=== PATIENT | female | born 1945 | race Caucasian/White ===

== ENCOUNTER → 2019-03-22 12:18 | Outpatient (BNVA) | payer MEDICARE, OTHER, SELFPAY | PROVIDERS: Referring Provider Neuromusculoskeletal Medicine & OMM; Visit Provider Psychiatry & Neurology Neurology | DX: G25.0 Essential tremor (principal); G47.61 Periodic limb movement disorder; M54.5 Low back pain; E11.9 Type 2 diabetes mellitus without complications | CPT/HCPCS: 99205 ==

== ENCOUNTER 2024-07-13 17:46 | Outpatient (REF) | payer MEDICARE, SELFPAY ==
[2024-07-13 16:51] LABS: HGB 13.3 g/dL (11.2-15.7); MCH 28.5 pg (27.0-33.0); MCHC 30.9 % (32.0-36.0); MCV 92 fL (80-95); Platelet Count 294 10^3/uL (130-400); RBC 4.66 10^6/uL (3.93-5.22); RDW 13.7 % (11.7-14.6); RDW-SD 46.5 fL; WBC 10.28 10^3/uL (4.4-10.8)
[2024-07-13 17:19] LABS: ALT 47 U/L (14-59); AST 52 U/L (15-37); Albumin 3.1 g/dL (3.4-5.0); Alkaline Phosphatase 202 U/L (46-116); Anion Gap 9.9 mmol/L (3-11); BUN 40 mg/dL (7-18); Bilirubin, Total 0.56 mg/dL (0.2-1.0); CO2 26.1 mmol/L (21.0-32.0); CREATININE 2.1 mg/dL (0.55-1.02); Chloride 103 mmol/L (98-107); Estimated GFR 23.67 (mL/min/1.73m2); Glucose 122 mg/dL (74-106); Potassium 4.3 mmol/L (3.5-5.1); Sodium 139 mmol/L (136-145); Total Protein 8.6 g/dL (6.4-8.2)
== END 2024-07-13 17:47 | disposition home or self-care (01) ==
LOC: NCHCN 17:46
PROVIDERS: Visit Provider Physician Assistant
DX: N28.9 Disorder of kidney and ureter, unspecified (principal)
CPT/HCPCS: 80053; 85027

== ENCOUNTER 2024-10-20 18:01 | Outpatient (REF) | payer MEDICARE, SELFPAY ==
[2024-10-20 19:19] LABS: HCT 39.6 % (36.0-46.0); HGB 12.7 g/dL (11.2-15.7); MCHC 32.1 % (32.0-36.0); MCV 93 fL (80-95); MPV 10.2 fL (8.0-11.0); Platelet Count 268 10^3/uL (130-400); RBC 4.24 10^6/uL (3.93-5.22); RDW 15.1 % (11.7-14.6); RDW-SD 51.7 fL; WBC 7.28 10^3/uL (4.4-10.8)
[2024-10-20 19:29] LABS: ALT 68 U/L (14-59); AST 55 U/L (15-37); Albumin 3.5 g/dL (3.4-5.0); Alkaline Phosphatase 138 U/L (46-116); Anion Gap 7.8 mmol/L (3-11); BUN 21 mg/dL (7-18); Bilirubin, Total 0.33 mg/dL (0.2-1.0); CO2 28.2 mmol/L (21.0-32.0); CREATININE 1.1 mg/dL (0.55-1.02); Calcium 8.9 mg/dL (8.5-10.1); Chloride 107 mmol/L (98-107); Estimated GFR 51.43 (mL/min/1.73m2); Glucose 142 mg/dL (74-106); Potassium 4.2 mmol/L (3.5-5.1); Sodium 143 mmol/L (136-145); Total Protein 7.3 g/dL (6.4-8.2)
[2024-10-20 19:30] LABS: C-Reactive Protein < 0.50 mg/dL (<or=0.5)
[2024-10-20 19:39] LABS: Hemoglobin A1C 7.9 % (<5.7)
[2024-10-21 19:47] LABS: AFP Tumor Marker 4.5 ng/mL (<8.1)
[2024-10-24 10:47] LABS: Hepatitis B Surface Ag Negative (Negative)
[2024-10-24 11:17] LABS: Hepatitis C Ab w Rflx HCV PCR Negative (Negative)
[2024-10-24 11:36] LABS: Hep B Core Antibody Negative (Negative)
== END 2024-10-20 18:02 | disposition home or self-care (01) ==
LOC: NCHCN 18:01
PROVIDERS: Visit Provider Physician Assistant
DX: E11.8 Type 2 diabetes mellitus with unspecified complications (principal); A49.8 Other bacterial infections of unspecified site; K74.60 Unspecified cirrhosis of liver
CPT/HCPCS: 80053; 85027; 86704; 86803; 87340; 82105; 83036; 86140

== ENCOUNTER 2025-02-08 01:43 | Outpatient (CLI) | payer MEDICARE, SELFPAY ==
--- NOTE | 2025-02-08 | DI.RAD_ITS ---
Exam(s) XR HIP RT COMPLETE AP PELVIS EXAM: XR HIP RT COMPLETE AP PELVIS CLINICAL HISTORY: RT HIP PAIN,M25.551,PROGRESSIVE. TECHNIQUE: 2D digital imaging was performed. Two views COMPARISON: No exams were available for comparison FINDINGS: BONES: No acute fracture is present. No bony destructive lesion is seen. There is hardware in the l ower lumbar spine. L5 JOINTS: No dislocation present. There is severe narrowing of the right hip joint space. There is s purring at the superior acetabulum and minimal spurring at the femoral head. There is a left hip pro sthesis which is unremarkable. There are mild degenerative changes of the SI joints and pubic symphy sis. SOFT TISSUE: Normal. IMPRESSION: Severe degenerative changes of the right hip DATA REPOSITORY: RADIATION DOSE DELIVERED:
== END 2025-02-08 02:03 ==
PROVIDERS: PCP Physician Assistant; Visit Provider Physician Assistant
DX: M16.11 Unilateral primary osteoarthritis, right hip (principal)
CPT/HCPCS: 73502

== ENCOUNTER 2025-03-16 14:30 | Outpatient (CLI) | payer MEDICARE, SELFPAY ==
--- NOTE | 2025-03-16 13:30 | DI.RAD_ITS ---
Exam(s) XR PELVIS AP EXAM: XR PELVIS AP CLINICAL HISTORY: HIP PAIN. TECHNIQUE: 2D digital imaging was performed. Single AP view. COMPARISON: CR XR HIP RT COMPLETE AP PELVIS from 02/08/2025 FINDINGS: BONES: No acute fracture is present. No bony destructive lesion is seen. JOINTS: No dislocation present. Stable appearance of left hip prosthesis. Severe narrowing of the r ight hip joint space and prominent spurring at the acetabulum. SI joints and pubic symphysis are unr emarkable. SOFT TISSUE: Normal. IMPRESSION: Severe degenerative changes of the right hip. DATA REPOSITORY: RADIATION DOSE DELIVERED:
== END 2025-03-16 14:31 | disposition home or self-care (01) ==
LOC: DIORS 14:31
PROVIDERS: PCP Physician Assistant; Referring Provider Physician Assistant; Visit Provider Student in an Organized Health Care Education/Training Program
DX: M16.11 Unilateral primary osteoarthritis, right hip (principal); Z96.642 Presence of left artificial hip joint; E11.69 Type 2 diabetes mellitus with other specified complication
CPT/HCPCS: 99204; 72170

== ENCOUNTER → 2025-05-18 12:36 | Outpatient (BNVA) | payer MEDICARE, SELFPAY | PROVIDERS: PCP Physician Assistant; Referring Provider Physician Assistant; Visit Provider Physician Assistant | DX: Z01.818 Encounter for other preprocedural examination (principal); M16.11 Unilateral primary osteoarthritis, right hip; E11.9 Type 2 diabetes mellitus without complications | CPT/HCPCS: 36416; 83036; 99024; 80048; 85027; 82985 ==

== ENCOUNTER 2025-05-18 14:11 | Outpatient (CLI) | payer MEDICARE, SELFPAY ==
[2025-05-18 14:11] LABS: HCT 43.2 % (36.0-46.0); HGB 13.9 g/dL (11.2-15.7); MCH 30.0 pg (27.0-33.0); MCHC 32.2 % (32.0-36.0); MCV 93 fL (80-95); MPV 9.7 fL (8.0-11.0); Platelet Count 273 10^3/uL (130-400); RBC 4.63 10^6/uL (3.93-5.22); RDW 13.1 % (11.7-14.6); RDW-SD 44.8 fL; WBC 8.36 10^3/uL (4.4-10.8)
[2025-05-18 14:36] LABS: Anion Gap 7.6 mmol/L (3-11); BUN 18 mg/dL (7-18); CO2 29.4 mmol/L (21.0-32.0); Calcium 9.5 mg/dL (8.5-10.1); Chloride 102 mmol/L (98-107); Estimated GFR 46.33 (mL/min/1.73m2); Glucose 227 mg/dL (74-106); Potassium 4.6 mmol/L (3.5-5.1); Sodium 139 mmol/L (136-145)
== END 2025-05-18 14:12 | disposition home or self-care (01) ==
LOC: LBO 14:11
PROVIDERS: PCP Physician Assistant; Visit Provider Student in an Organized Health Care Education/Training Program
DX: M16.11 Unilateral primary osteoarthritis, right hip (principal); E11.9 Type 2 diabetes mellitus without complications; Z01.818 Encounter for other preprocedural examination
CPT/HCPCS: 36415; 80048; 85027; 82985

== ENCOUNTER 2025-08-15 05:49 | Day surgery (SDC) | payer MEDICARE, SELFPAY ==
[2025-08-15] VITALS (27 sets, daily range): BP systolic 119–207; BP diastolic 51–103; PULSE 93–107; RESP 12–22; TEMP 36.4–36.8; O2SAT 90–100; BMI 33.6
[2025-08-15] MEDS: Acetaminophen 500 MG TAB 1000 MG PO (06:31)
--- NOTE | 2025-08-15 06:31 | W.ANESPRE ---
General Info Date of Service Date Performed: 08/15/25 Height: 4 ft 11.5 in Weight: 76.8 kg Body Mass Index (BMI): 33.6 Surgical Procedure: Operation Date: 08/15/25 07:50 Proposed Procedure Side Surgeon p Hip Total Hip Anterior, Corail Right Edvin Lemons MD Meds Allergies and Home Medications Allergies Allergy/AdvReac Type Severity Reaction Status Date / Time citalopram (From Celexa) Allergy Unknown Nausea Verified 08/15/25 06:10 codeine Allergy Unknown Nausea Verified 08/15/25 06:10 erythromycin base Allergy Unknown Nausea Verified 08/15/25 06:10 glipizide Allergy Unknown Nausea Verified 08/15/25 06:10 pregabalin (From Lyrica) Allergy Unknown Nausea Verified 08/15/25 06:10 Benzodiazepines Allergy Nausea Verified 08/15/25 06:10 pioglitazone (From Actos) Allergy Nausea Verified 08/15/25 06:10 short acting morphine Allergy Intermediate vomiting Uncoded 08/15/25 06:10 Home Medication ?Medication ?Instructions ?Recorded latanoprost 0.005 % eye drops, 1 drp ophthalmic (eye) QPM 02/09/19 emulsion metoprolol tartrate 25 mg tablet 25 mg PO BID 02/09/19 subcutaneous insulin pump #1 ea 02/09/19 albuterol sulfate 90 mcg/actuation 2 puff inhalation Q6H PRN 02/08/25 aerosol inhaler (Ventolin HFA) atorvastatin 40 mg tablet 40 mg PO DAILY 02/08/25 dorzolamide 22.3 mg-timolol 6.8 1 drp ophthalmic (eye) BID 02/08/25 mg/mL eye drops insulin lispro 100 unit/mL 180 unit subcut DAILY 02/08/25 subcutaneous pen (Admelog SoloStar U-100 Insulin lispro) multivitamin 1 tab PO DAILY 02/08/25 ropinirole 4 mg tablet 4 mg PO QHS 02/08/25 semaglutide 0.25 mg or 0.5 mg (2 0.5 mg subcut QWEEK 02/08/25 mg/3 mL) subcutaneous pen injector (Ozempic) buspirone 5 mg tablet 10 mg PO BID 05/18/25 cholecalciferol (vitamin D3) 25 25 mcg PO DAILY 05/18/25 mcg (1,000 unit) capsule duloxetine 60 mg capsule,delayed 60 mg PO BID 05/18/25 release gabapentin 600 mg tablet 300 mg PO TID 05/18/25 pantoprazole 40 mg tablet,delayed 40 mg PO DAILY 05/18/25 release acetaminophen 500 mg tablet 1,000 mg (2 x 500 mg) PO Q8H PRN 08/15/25 pain #90 tabs aspirin 81 mg tablet,delayed 81 mg PO BID 30 days #60 tabs 08/15/25 release celecoxib 200 mg capsule (Celebrex) 200 mg PO BID PRN #60 caps 08/15/25 docusate sodium 100 mg capsule 100 mg PO BID #28 caps 08/15/25 (Colace) insulin lispro 200 unit/mL (3 mL) subcut 08/15/25 subcutaneous pen (Humalog KwikPen U-200 Insulin) oxycodone 5 mg tablet 5 mg PO Q6H PRN #12 tabs 08/15/25 Current Visit Medications: Current Medications Generic Name Dose Route Start Last Admin Trade Name Jim PRN Reason Stop Dose Admin Acetaminophen 1,000 mg 08/15/25 06:00 Acetaminophen 500 Mg Tab PO 08/15/25 23:59 PREOP RAUDEL Celecoxib 400 mg 08/15/25 06:00 Celecoxib 200 Mg Cap PO 08/15/25 23:59 PREOP RAUDEL Ringer's Solution 1,000 mls @ 80 mls/hr 08/15/25 06:00 IV 08/15/25 23:59 INFUSION RAUDEL Cefazolin Sodium/Dextrose 2 gm in 50 mls @ 100 mls/hr 08/15/25 06:00 Ancef Duplex IVPB 08/15/25 23:59 PREOP RAUDEL Tranexamic Acid/Sodium Chloride 1,000 mg in 100 mls @ 600 mls/hr 08/15/25 06:00 IVPB 08/15/25 23:59 PREOP RAUDEL IV Miscellaneous Supplies 1 each 08/15/25 06:00 Iv Access IV 08/15/25 23:59 DIRECTED RAUDEL Sodium Chloride 0 ml 08/15/25 06:00 Normal Saline Flush 10 Ml Syr IV 08/15/25 23:59 PRN PRN Sodium Chloride 0 ml 08/15/25 06:00 Normal Saline 10 Ml Vial IJ 08/15/25 23:59 DIRECTED PRN Sterile Water 0 ml 08/15/25 06:00 Water,Injection,Sterile 10 Ml Vial IJ 08/15/25 23:59 DIRECTED PRN PFSH Active Problems Active Problems: Problem Status Onset Code Arthritis of right hip Acute M16.11 MELVIN (obstructive sleep apnea) Chronic G47.33 Coronary artery disease Chronic I25.10 Cirrhosis of liver Acute K74.60 Renal insufficiency Chronic N28.9 Essential tremor Chronic G25.0 Periodic limb movement disorder Chronic G47.61 Osteoporosis Chronic M81.0 Cervical radiculopathy Acute M54.12 IBS (irritable bowel syndrome) Chronic K58.9 GERD (gastroesophageal reflux disease) Chronic K21.9 Benign essential hypertension Acute I10 Glaucoma Chronic H40.9 Insomnia Acute G47.00 Depressive disorder Acute F32.9 Anxiety disorder Acute F41.9 Mixed hyperlipidemia Acute E78.2 Vitamin D deficiency Acute E55.9 Type 2 diabetes mellitus Acute E11.9 Fibromyalgia Acute M79.7 Thoracic back pain Acute M54.6 Chronic low back pain Acute M54.5, G89.29 Medical History Medical History History of bacterial infection pseudomonas 06/28/24, L SI joint septic arthritis w/osteomyelitis, w/L piriformis abscess formation Joint pain Lichenification and lichen simplex chronicus Psoriasis Atopic dermatitis Senile hyperkeratosis Claustrophobia Unsteady gait Surgical History Surgical History History of total left hip arthroplasty (08/27/21) H/O heart artery stent Hx of total hysterectomy History of cholecystectomy Carpal tunnel syndrome History of excision of lamina of cervical vertebra for decompression of spinal cord 2002 and 2011 History of lumbosacral spine surgery 2004 and 2011 Tobacco Smoking/Tobacco Use Status: Never Alcohol Alcohol Intake: never Substance Use Substance use: Never Vital Signs and Lab Results Vital Signs Most Recent Vital Signs in EMR: Most Recent Vital Signs Temp Pulse Resp BP Pulse Ox 36.6 C 100 H 22 119/70 96 08/15/25 06:25 08/15/25 06:25 08/15/25 06:25 08/15/25 06:25 08/15/25 06:25 Point of Care Results Point of Care Results: Finger Stick Blood Glucose 152 08/15/25 06:35 Imaging and Studies Imaging and Studies Study information below may be from another EMR and interpreted by another provider. Please see original notes in EMR for more complete details. Echocardiogram Summary: 05/11/24 EF 65%. Mild/moderate TR Mild elevated LV SP Anesthesia Assessment and Plan Anesthesia History Personal History: No History of Anesthesia Complications and Other Family History: No Family History of Anesthesia Complications Exercise Tolerance Exercise Tolerance: Metabolic Equivalents<4 Pertinent Negatives Pertinent Negatives: No Symptoms of GERD, No Major Pulmonary Symptoms or Complaints and No History of CVA/TIA Cardiac & Pulmonary Exam Cardiac Exam: Heart Murmur Present (not new) Pulmonary Exam: Other Cardiac and Pulmonary Comment:: Diminished bilateral breath sounds Implantable Cardiac Device Does patient have a Pacemaker or an ICD?: No Airway Exam Known Difficult Airway: No Mallampati Class: 2 Mouth Opening: Normal (> 3cm) Thyromental Distance: Greater than 3 cm Neck Range of Motion: Full ROM Neck Circumference: Normal Teeth Condition: Generalized Poor Dentition ASA Classification ASA Score: ASA 3 Emergency Case?: No NPO Status NPO Status: NPO Clears >2 hours, Solids >8 hours Anesthesia Plan Resuscitation Status: Full Code Anesthesia Technique: General Anesthesia Airway Planned: Endotracheal Tube Monitors Used: Standard Monitors and SedLine Preoperative Comments:: Last semaglutide dose 07/28/25
[2025-08-15] MEDS: Lactated Ringers 1,000 ML 80 ML IV (07:00)
--- NOTE | 2025-08-15 07:04 | W.PM.DSUDISC ---
Date of service: 08/15/25 Discharge Plan Disposition Patient Disposition: Home Condition: Good Discharge Details Reason For Visit: Right hip DJD Attending Provider: Edvin Lemons Primary Care Provider: Rafat Moctezuma Home Meds and New Rx's Prescriptions: New celecoxib [Celebrex] 200 mg capsule 200 mg PO BID PRNQty: 60 0RF Rx Instructions: Take one tablet twice daily for pain and inflammation aspirin 81 mg tablet,delayed release (DR/EC) 81 mg PO BID 30 Days Qty: 60 0RF acetaminophen 500 mg tablet 1,000 mg PO Q8H PRN Qty: 90 0RF Rx Instructions: Take two tablets up to every 8 hours as needed for pain docusate sodium [Colace] 100 mg capsule 100 mg PO BID Qty: 28 0RF oxycodone 5 mg tablet 5 mg PO Q6H PRNQty: 12 0RF Rx Instructions: Take one tablet up to every 6 hours as needed for severe postoperative pain Continued insulin lispro [Admelog SoloStar U-100 Insulin] 100 unit/mL insulin pen 180 unit subcut DAILY Patient Comments: pt. reports being on U200 now, wears insulin pump atorvastatin 40 mg tablet 40 mg PO DAILY dorzolamide-timolol 22.3-6.8 mg/mL drops 1 drp ophthalmic (eye) BID Ozempic 0.25 mg or 0.5 mg (2 mg/3 mL) pen injector 0.5 mg subcut QWEEK ropinirole 4 mg tablet 4 mg PO QHS Rx Instructions: administer 1-3 hours before bedtime albuterol sulfate [Ventolin HFA] 90 mcg/actuation HFA aerosol inhaler 2 puff inhalation Q6H PRN multivitamin Tablet 1 tab PO DAILY buspirone 5 mg tablet 10 mg PO BID cholecalciferol (vitamin D3) 25 mcg (1,000 unit) capsule 25 mcg PO DAILY gabapentin 600 mg tablet 300 mg PO TID pantoprazole 40 mg tablet,delayed release (DR/EC) 40 mg PO DAILY duloxetine 60 mg capsule,delayed release(DR/EC) 60 mg PO BID latanoprost 0.005 % drops, emulsion 1 drp OP QPM (DME) subcutaneous insulin pump misc See Dose Instructions .ROUTE .MEDSUPPLY Qty: 1 Rx Instructions: As directed metoprolol tartrate 25 mg tablet 25 mg PO BID Humalog Vince Insulin 200 unit/mL (3 mL) insulin pen SUBCUT Discontinued acetaminophen 325 mg capsule 325 mg PO Q6H PRN oxycodone 5 mg tablet 5 mg PO BID PRN aspirin 81 mg tablet,chewable 81 mg PO DAILY Discharge Instructions Additional Instructions: Total Hip Discharge Instructions Activity: The most important activity is to walk. You should try to take short walks a few times a day. You have no restrictions on movement or positioning, but do not try to force what you do. You will find some stiffness and weakness with hip flexion (lifting your knee). Do not try to strengthen this too early, continue to practice walking and stairs and this will come. - Outpatient physical therapy can be helpful to help return you to a normal gait and improve your flexibility and strength. This can start around 2 weeks. For some patients, it?s not necessary. Usually this is determined at the time of discharge or at the first post-operative visit. - You should wear the UYEN hose on both legs for 2 weeks. Dressing: Keep the surgical dressing in place for at least one week. After the first week it may be removed and replace with light gauze and tape or nothing. It may get wet after 3 days but avoid soaking the dressing. If it gets wet, just lightly pat dry. It is important to always keep some gauze between skin folds, especially when you are sitting. Spend some time with the wound exposed when you are lying flat as the incision does wrinkle onto itself. Medications: - You should take Tylenol and an anti-inflammatory Celebrex as your primary pain control medications. If the Celebrex is too expensive or not covered, please call the office for another alternative (Advil/Ibuprofen or Naproxen/Aleve). - You have been prescribed a stronger pain medication Oxycodone for breakthrough pain, take as needed as prescribed. - You take a stomach acid reduction agent Pantoprozole at baseline - continue with this medication to help reduce stomach acid and reflux. - You will be taking Aspirin 81mg twice a day for DVT prevention unless instructed otherwise. - If you have constipation you should take Colace (which has been prescribed) or Miralax (which is available [id number]). It takes most people 3-4 days to have a bowel movement. Follow-up: 2 weeks If you have any acute concerns or questions, please do not hesitate to contact the office at [phone]. You may contact Dr. Lemons with any questions after hours through the hospital at [phone] or on his cell phone at [phone]. Referrals: Edvin Lemons MD [ [facility] STAFF PHYSICIAN, Orthopaedic Surgical] Equipment/Supplies: Walker Activity:: Elevate Remove Dressings/Wound Care:: Do Not Remove Shower/Bathe:: Cover Diet:: As Tolerated Discharge Orders Discharge Orders: Discharge Order (Routine); Ordered 08/15/25 Ordered By: Ольга Kingston
[2025-08-15] MEDS: Celecoxib 200 MG CAP 400 MG PO (07:10)
--- NOTE | 2025-08-15 07:15 | DI.RAD_ITS ---
Exam(s) XR HIP RT IN OR EXAM: XR HIP RT IN OR CLINICAL HISTORY: Arthritis of right hip TECHNIQUE: 2D and realtime digital imaging was performed. CONTRAST MATERIAL: Refer to procedure report. COMPARISON: CR XR HIP RT COMPLETE AP PELVIS from 02/08/2025 CR XR PELVIS AP from 03/16/2025 FINDINGS: Fluoroscopy was provided for Dr. Lemons during the performance of a right total hip arthroplasty. Please refer to the procedure report for complete details. Ka,r=2.3 mGy IMPRESSION: RADIATION DOSE DELIVERED: 0.0 0.0 0
--- NOTE | 2025-08-15 07:19 | W.PREOPHP ---
Assessment and Plan Assessment and plan (1) Arthritis of right hip: Status: Acute Assessment and plan: Cindy is a 80-year-old female with multiple medical comorbidities including obstructive sleep apnea, coronary artery disease, chronic kidney disease, diabetes, GERD, hypertension, hyperlipidemia. She has known arthritis about the right hip and is here today for right hip replacement. She has had previous medical clearance from her primary care team in April although she had an elevated fructosamine level. Fructosamine is now within normal limits which decreases her infection risk. She has no other changes to her medical profile. Therefore, I did offer hip replacement today. Once again I reviewed the technical details of hip replacement. I reviewed the necessary time for rehabilitation following the procedure. Furthermore, I went over in detail the possible complications of hip replacement. These include but are not limited to bleeding, infection, pain, stiffness, weakness, damage to nerves (especially the lateral femoral cutaneous nerve), damage to vessels, damage to muscle and tendon, fracture, leg length inequality, wound healing complications, instability, dislocation, and blood clot. Questions were answered. I again expressed that this is a surgery to improve functional quality of life. After a review of the presented information and risks, Cindy desired to proceed. History of Present Illness History of Present Illness Chief Complaint: Right hip pain Narrative: Cindy is a 80-year-old female who has known arthritis about her right hip. Please see the previous office note for complete detailed history. Her surgery in the summer was canceled due to a high fructosamine level. She has worked diligently on her glucose control and her most recent fructosamine is 253. She has a known murmur which has been evaluated with an echo in the past and she denies any chest pain or shortness of breath. Review of Systems All systems reviewed & are unremarkable except as noted in HPI and below PFSH All Active Problems Arthritis of right hip (Acute) MELVIN (obstructive sleep apnea) (Chronic) Coronary artery disease (Chronic) Cirrhosis of liver (Acute) Renal insufficiency (Chronic) Essential tremor (Chronic) Periodic limb movement disorder (Chronic) Osteoporosis (Chronic) Cervical radiculopathy (Acute) IBS (irritable bowel syndrome) (Chronic) GERD (gastroesophageal reflux disease) (Chronic) Benign essential hypertension (Acute) Glaucoma (Chronic) Insomnia (Acute) Depressive disorder (Acute) Anxiety disorder (Acute) Mixed hyperlipidemia (Acute) Vitamin D deficiency (Acute) Type 2 diabetes mellitus (Acute) Fibromyalgia (Acute) Thoracic back pain (Acute) Chronic low back pain (Acute) Medical History History of bacterial infection pseudomonas 06/28/24, L SI joint septic arthritis w/osteomyelitis, w/L piriformis abscess formation Joint pain Lichenification and lichen simplex chronicus Psoriasis Atopic dermatitis Senile hyperkeratosis Claustrophobia Unsteady gait Surgical History History of total left hip arthroplasty (08/27/21) H/O heart artery stent Hx of total hysterectomy History of cholecystectomy Carpal tunnel syndrome History of excision of lamina of cervical vertebra for decompression of spinal cord 2002 and 2011 History of lumbosacral spine surgery 2004 and 2011 Family History Sister Breast cancer Hypertension Father Colon cancer Lung cancer Maternal Grandmother Diabetes Hypertension Stroke Myocardial infarction Mother Hypertension H/O mitral valve replacement Hyperlipidemia IBS (irritable bowel syndrome) Osteoporosis Sister Breast cancer Hypertension Paternal Grandfather Meningioma Social History Smoking/Tobacco Use Status: Never Smoking risk assessment performed?: Yes Alcohol Intake: never Drug use: Never Household members: spouse Housing: house current occupation: Retired RN Do you feel safe at home: Yes Do you feel safe in your relationship?: Yes Additional Social history: UTAP Meds Allergies and Home Medications Allergies Allergy/AdvReac Type Severity Reaction Status Date / Time citalopram (From Celexa) Allergy Unknown Nausea Verified 08/15/25 06:10 codeine Allergy Unknown Nausea Verified 08/15/25 06:10 erythromycin base Allergy Unknown Nausea Verified 08/15/25 06:10 glipizide Allergy Unknown Nausea Verified 08/15/25 06:10 pregabalin (From Lyrica) Allergy Unknown Nausea Verified 08/15/25 06:10 Benzodiazepines Allergy Nausea Verified 08/15/25 06:10 pioglitazone (From Actos) Allergy Nausea Verified 08/15/25 06:10 short acting morphine Allergy Intermediate vomiting Uncoded 08/15/25 06:10 Home Medications ?Medication ?Instructions ?Recorded ?Confirmed ?Type latanoprost 0.005 % eye drops, 1 drp ophthalmic (eye) QPM 02/09/19 08/15/25 History emulsion metoprolol tartrate 25 mg tablet 25 mg PO BID 02/09/19 08/15/25 History subcutaneous insulin pump #1 ea 02/09/19 05/18/25 History albuterol sulfate 90 mcg/actuation 2 puff inhalation Q6H PRN 02/08/25 08/15/25 History aerosol inhaler (Ventolin HFA) atorvastatin 40 mg tablet 40 mg PO DAILY 02/08/25 08/15/25 History dorzolamide 22.3 mg-timolol 6.8 1 drp ophthalmic (eye) BID 02/08/25 08/15/25 History mg/mL eye drops insulin lispro 100 unit/mL 180 unit subcut DAILY 02/08/25 08/15/25 History subcutaneous pen (Admelog SoloStar U-100 Insulin lispro) multivitamin 1 tab PO DAILY 02/08/25 08/15/25 History ropinirole 4 mg tablet 4 mg PO QHS 02/08/25 08/15/25 History semaglutide 0.25 mg or 0.5 mg (2 0.5 mg subcut QWEEK 02/08/25 08/14/25 History mg/3 mL) subcutaneous pen injector (Ozempic) buspirone 5 mg tablet 10 mg PO BID 05/18/25 08/15/25 History cholecalciferol (vitamin D3) 25 25 mcg PO DAILY 05/18/25 08/15/25 History mcg (1,000 unit) capsule duloxetine 60 mg capsule,delayed 60 mg PO BID 05/18/25 08/15/25 History release gabapentin 600 mg tablet 300 mg PO TID 05/18/25 08/15/25 History pantoprazole 40 mg tablet,delayed 40 mg PO DAILY 05/18/25 08/15/25 History release acetaminophen 500 mg tablet 1,000 mg (2 x 500 mg) PO Q8H PRN 08/15/25 Rx pain #90 tabs aspirin 81 mg tablet,delayed 81 mg PO BID 30 days #60 tabs 08/15/25 Rx release celecoxib 200 mg capsule (Celebrex) 200 mg PO BID PRN #60 caps 08/15/25 Rx docusate sodium 100 mg capsule 100 mg PO BID #28 caps 08/15/25 Rx (Colace) insulin lispro 200 unit/mL (3 mL) subcut 08/15/25 History subcutaneous pen (Humalog KwikPen U-200 Insulin) oxycodone 5 mg tablet 5 mg PO Q6H PRN #12 tabs 08/15/25 Rx Exam Const General: cooperative, healthy appearing, comfortable and no acute distress Resp Effort & Inspection: normal respiratory effort Auscultation: clear to auscultation bilaterally Cardio Rate: regular rate Rhythm: regular rhythm Heart Sounds: murmur Results Last Vital Signs Temp 36.6 C 08/15/25 06:25 Pulse 100 H 08/15/25 06:25 Resp 22 08/15/25 06:25 BP 119/70 08/15/25 06:25 Pulse Ox 96 08/15/25 06:25
--- NOTE | 2025-08-15 07:46 | W.PM.OP ---
Operative Note Operative Note PRE-OP DIAGNOSIS: Right Hip Osteoarthritis POST-OP DIAGNOSIS: same PROCEDURE: Right Anterior Total Hip Arthroplasty with Intraoperative Navigation SURGEON: Edvin Lemons [employer] TECHNICIAN: Ольга Kingston ANESTHESIA TYPE: General LMA/ETT Refer to Anesthesia Record ESTIMATED BLOOD LOSS: 200 PATHOLOGY: none sent TOURNIQUET TIME: 0 COMPLICATIONS: None Patient was transported to: PACU Patient's condition: stable Implants: 1. Depuy Everton Acetabular Component, 48mm 2. Depuy Acetabular Liner, [id number] 3. Depuy Corail Standard 125 degree Collared Femoral Stem, Size 10 4. Depuy Altrx Ceramic Femoral Head, Size 32+9mm Indications: I have seen Cindy in clinic for symptoms of hip arthritis, confirmed with radiographic findings. She has exhausted nonoperative methods and was having significant limitations in daily function and desired better function and less pain. I discussed the technical details of a hip replacement. I explained the risks of the procedure to include, but not limited to, bleeding, infection, pain, stiffness, fracture, damage to nerves and vessels, damage to muscles and tendons, loosening, instability, leg length inequality, need for repeat procedure, blood clot and cardiopulmonary demise. Despite these risks, [NAME] elected to proceed. Findings: There was significant signs of arthritis throughout the hip with large osteophytes and notable synovitis. Procedure Description: Cindy was greeted in the preoperative holding area where the correct side was identified and marked. The consent was reviewed with the patient and signed. The history and physical was updated. All questions were answered. She was taken back to the operating room. A general anesthestic was then administered. The feet were wrapped with cast padding and Coban and then placed into the boot liners and then into the boots. Care was taken to protect the skin and make sure the heels were fully down and the boots were stable. The patient was then positioned onto the HANA table. Both legs were held in a neutral position. SCDs were applied. The patient was then slid down onto a peroneal post. Prophylactic antibiotics in the form of Cefazolin were administered. 1g of Tranxemic Acid was given intravenously within 30 minutes of incision. The right leg was then prepped with Chloraprep and draped in a standard fashion. A second prep with Chloraprep was performed prior to placement of a shower-curtain type drape with Iodine impregnated skin protection. A timeout to confirm correct identity, side and site, procedure, allergies, anesthesia, and medical concerns was performed. An obliquely oriented incision was made starting lateral to the ASIS and running distal over the Tensor Fascia Mikki (TFL) muscle belly toward the fibular head, approximately 10cm. The skin and soft tissue was dissected sharply, through Jesus?s fascia, and to the fascia of the TFL. With the fascia and superior border of the IT band identified, the fascia was incised with a new knife just above any perforators from the IT band. The TFL muscle belly was bluntly dissected away from the fascia and moved laterally. The fat between TFL and rectus was identified to ensure the dissection was not within the TFL. Blunt dissection created space between abductors and the capsule and retractor was placed over the lateral femoral neck. The fibers of the rectus femoris tendon were identified and these were freed from the anterior capsule. A second cobra retractor was placed around the medial femoral neck. The TFL was further retracted laterally to show the deep fascia. Careful dissection through this layer identified three main crossing vessels of the lateral femoral circumflex. These were cauterized in multiple locations and then cut without any noticeable bleeding. The TFL was further released bluntly from the deep fascia to expose anterior hip capsule and fat The soft tissue orthopaedic retractor was then placed beneath the TFL and against sartorius and medial soft tissues to protect and retract the soft tissues. A T-capsulotomy was then performed starting at the superior lateral acetabulum and moving distally to the intertrochanteric ridge. These capsular flaps were tagged with a No. 1 Vicryl and elevated from within. The capsular flaps were released to the shoulder of the lateral neck and to the lesser trochanter to give excellent visualization of the proximal femur. A neck osteotomy was performed using an oscillating saw based on preoperative templates. This cut started in the shoulder and of the lateral neck and exited medially. The saw was at all times directed medially to avoid injury to the greater trochanter. Gross traction was applied to the leg and the osteotomy opened. The femoral head was removed with a corkscrew, making sure to protect the TFL on its exit. Traction was released after head removal. This was measured on the back table to determine the starting reamer size. Portions of the rectus obscuring visualization were minimally elevated off the superior acetabulum. An anterior retractor was placed over the anterior wall between capsule and labrum and attached to the Gripper retraction system. The femur was rotated to 90 degrees and medial capsule was fully released until the lesser trochanter was palpable and visible; the femur was returned to 30 degrees. A posterior retractor was placed similarly between capsule and labrum. This provided excellent visualization. The contents of the cotyloid fossa were removed with electrocautery and the labrum was removed with a knife. There was a notable floor osteophyte. There was significant chondromalacia of the superior acetabulum. There is also some synovitis seen within the hip. Acetabular reaming began with a 44mm reamer. This first reaming was directed anterior to posterior and medial to get down to the true floor. This was inspected and reamed until the true floor was reached. The anterior retractor was then released and entry and exit was provided by traction on the capsular flaps. I then reamed sequentially up to a 48mm reamer where good fit was obtained. The larger reamers were oriented based on anatomical reference of the anterior and lateral ramos to ensure proper abduction and anteversion. Positioning and size was confirmed with the fluoroscopy. A 48mm Depuy Everton acetabular component was selected. The acetabulum was reamed around the periphery with the selected acetabular size to prevent a rim fit. The deep tissues were irrigated. The acetabular component was then impacted in a position of about 40-45 degrees of abduction and 15-20 degrees of anteversion, using the patient?s anatomy as the ultimate landmark. Fluoroscopy was used to confirm this. There was excellent ship's pilot of the acetabular component and the inserting handle was removed. The acetabular liner, Depuy [id number] polyethylene liner, was inserted and lined up with the tines of the acetabular component. There was no soft tissue interposition. The liner was then impacted into position and confirmed to be well-seated. A portion of the jacqueline-articular cocktail was then injected around the acetabulum into the capsule and periosteum. This cocktail consisted of 123mg of Ropivacaine, 0.25mg of Epinephrine, 0.04mg of Clonidine, and 15mg of Ketorolac, diluted to 50cc. The leg was rotated to 120 degrees. Any remaining medial capsule was released until the lesser trochanter was easily palpable. A retractor was placed medially. The lateral capsule was further released into the shoulder to allow access to the greater trochanter. A Welch retractor was placed over the greater trochanter which allowed the trochanter to flip in front of the capsule for excellent exposure. The leg was brought down into maximal extension and 20 degrees of adduction while ensuring there was no impingement on the acetabulum. Any remnant capsule within the trochanter was released. Piriformis and obturator externis were identified and protected. There was excellent access to the proximal femur. The lateral neck remnant was removed with a rongeur. A blunt canal probe was used to identify the canal and trajectory for later broaching. A box osteotome initiated the broach course. A small curved rasp and a curved curette were used to work laterally. Broaching then began with a size 8 Corail broach. This was inserted manually around the trochanter and into the canal before mallet blows. The broach was seated to a few millimeters below the cut level based on the neck cut and the preoperative template. Sequential broaching was continued with the Ernie'sse pneumatic broaching device until a tight fit was obtained with good rotational control of the femur. A trial standard 125 degree neck was inserted along with a +1 trial head. The leg was brought out of extension and adduction and then reduced with traction and internal rotation. The leg was stable anteriorly in a position of 30 degrees of extension and 90 degrees of external rotation. Fluoroscopy was used to ensure there was no fracture and the stem was seated well. Leg lengths were checked with an AP pelvis and pelvic reference points. Apofore navigation system was used to confirm appropriate positioning and leg length and offset. This actually corrected the leg length but unfortunately undercorrected the offset. Therefore I went up to a +9 mm head and advance the stem approximate 3 to 4 mm. Once content with the desired offset and leg lengths, the leg was brought back into extension, external rotation and adduction. The periosteum and surrounding tissue was injected with remaining portion of the jacqueline-articular cocktail. The proximal femur was irrigated as well as the deep tissues. The Depuy Corail standard 125 degree collared stem, size 10, was then manually inserted into the proximal femur making sure to control rotation. It was then malleted into position with light blows, giving breaks to allow bone expansion and decrease risk of fracture. The selected Depuy Altrx Ceramic Head, size 32+9mm, was then placed onto the clean and dry trunnion and secured with impaction onto the tapered fit. The leg was brought back out of extension and adduction and reduced with traction and internal rotation. Stability was confirmed with no shuck at 90 degrees of external rotation and 30 degrees of extension. No impingement through range of motion arc. Final x-ray images were obtained with fluoroscopy to confirm adequate positioning and no intraoperative fracture. The deep tissues were thoroughly irrigated with Surgiphor, betadine solution. This was allowed to sit in the wound for 3 minutes before being thoroughly irrigated out with normal saline. The capsule was then reapproximated with the previously placed sutures. The TFL fascia was finally closed with a No. 2 Stratafix, barbed suture. Deep tissues were then reapproximated with 0 Vicryl and a running 2-0 Vicryl. The skin was closed with a running 4-0 Monocryl in a subcuticular fashion. This was reinforced with skin glue. A Mepilex silver dressing was applied. At the end of the case, all counts were correct. Cindy was transferred to the hospital bed without difficulty and suffering no apparent complication. She has a good prognosis. Physical therapy will start today and without restrictions, weight-bearing as tolerated. Aspirin 81mg BID will be used for DVT prophylaxis. Date of Procedure: 08/15/25
[2025-08-15] MEDS: ceFAZolin 2 GM/50 ML BAG IVPB (07:50)
[2025-08-15] MEDS: TRANEXAMIC ACID/SOD. CHL. 1,000 MG/100 ML BAG 600 MG IVPB (07:56)
[2025-08-15] MEDS: ROPIvacaine 0.2% 200 MG/100 ML BAG (08:07)
[2025-08-15] MEDS: EPINEPHrine 1 MG/ML AMP pres-free (08:07)
[2025-08-15] MEDS: Ketorolac 30 MG/ML VIAL (08:07)
[2025-08-15] MEDS: fentaNYL 100 MCG/2 ML VIAL IVP ×3 (09:24→09:55)
[2025-08-15] MEDS: Tranexamic Acid 650 MG TAB 1300 MG PO (10:34)
[2025-08-15] MEDS: oxyCODONE 5 MG TAB PO (10:34)
--- NOTE | 2025-08-15 10:54 | W.ANESPOSTOP ---
Postoperative Evaluation Date, Time and Location Date Performed: 08/15/25 Time Performed: 10:55 Patient Location: Day Surgery Unit Vital Signs Most Recent Imported Vital Signs: Most Recent Vital Signs Temp Pulse Resp BP Pulse Ox 36.4 C L 96 H 20 177/73 H 94 08/15/25 10:38 08/15/25 10:38 08/15/25 10:38 08/15/25 10:38 08/15/25 10:38 Pain Score Most Recent Pain Score: Most Recent Pain Score Pain Level 6 08/15/25 10:38 Assessment Mental Status: Awake (Alert & Oriented to Patient Baseline) Airway and Respiratory Function: Patent airway with normal (patient baseline) respiratory exam Cardiovascular Function: Hemodynamically Stable Hydration Status: Adequately Hydrated Nausea & Vomiting: No Nausea or Vomiting Pain: Pain is tolerable per patient Peripheral Nerve Block: Patient did not receive a nerve block
--- NOTE | 2025-08-15 11:06 | IN_ITS ---
PT Notes Visit Reasons: Right hip DJD Physical Therapy Day Surgery Initial Evaluation Date: 08/15/2025 Referring Doctor: DOE Gomez PT Orders: PT CONSULT: S/P Ortho Surgery Precautions: WBAT on the R LE with AD. Patient Profile/Admitting Diagnosis: Cindy is a 80-year-old female who with degenerative joint disease of the right hip and status post right total hip anterior arthroplasty on postoperative day 0. PMHX: All Active Problems Arthritis of right hip (Acute) MELVIN (obstructive sleep apnea) (Chronic) Coronary artery disease (Chronic) Cirrhosis of liver (Acute) Renal insufficiency (Chronic) Essential tremor (Chronic) Periodic limb movement disorder (Chronic) Osteoporosis (Chronic) Cervical radiculopathy (Acute) IBS (irritable bowel syndrome) (Chronic) GERD (gastroesophageal reflux disease) (Chronic) Benign essential hypertension (Acute) Glaucoma (Chronic) Insomnia (Acute) Depressive disorder (Acute) Anxiety disorder (Acute) Mixed hyperlipidemia (Acute) Vitamin D deficiency (Acute) Type 2 diabetes mellitus (Acute) Fibromyalgia (Acute) Thoracic back pain (Acute) Chronic low back pain (Acute) Medical History History of bacterial infection pseudomonas 06/28/24, L SI joint septic arthritis w/osteomyelitis, w/L piriformis abscess formation Joint pain Lichenification and lichen simplex chronicus Psoriasis Atopic dermatitis Senile hyperkeratosis Claustrophobia Unsteady gait Surgical History History of total left hip arthroplasty (08/27/21) H/O heart artery stent Hx of total hysterectomy History of cholecystectomy Carpal tunnel syndrome History of excision of lamina of cervical vertebra for decompression of spinal cord 2002 and 2011 History of lumbosacral spine surgery 2004 and 2011 Social History/Home Situation: Lives with in a private home with a ramp to enter and a stair lift to the bedroom of the house. Independent with all aspects of ADLs using her front- wheeled walker. Equipment Owned/DME: FWW, 4WW, stair lift Subjective: Complaint of pain in the right hip at 4/10 at rest that did not increase with activity. Mildly lightheaded after ambulation but no LOB nor SOB. Agreeable to trying out a lower walker as hers is a bit too high, felt better with a youth sized walker fitted for her. Objective: General Observation: Mepilex Ag over surgical incision. TEDS to be legs. present in room throughout session. Mental Status: A&O x 4 Pain: As above ROM: Right Lower Extremity: Hip flexion WFL. Hip abduction WFL. Knee flexion WFL. Ankle dorsiflexion WFL. Ankle plantarflexion WFL. Left Lower Extremity: Hip flexion WFL. Hip abduction WFL. Knee flexion WFL. Ankle dorsiflexion WFL. Ankle plantarflexion WFL. Strength: Right Lower Extremity: Hip flexors 4-/5. Hip abductors 4-/5. Knee flexors 4/5. Knee extensors 4-/5. Ankle dorsiflexors 5/5. Ankle plantarflexors 5/5. Left Lower Extremity:Hip flexors 5/5. Hip abductors 5/5. Knee flexors 5/5. Knee extensors 5/5. Ankle dorsiflexors 5/5. Ankle plantarflexors 5/5. Sensation: Intact as to pain and light pressure in BLE Bed Mobility/Transfers: Minimal cueing provided for use of B hands as needed for support, movement sequence, AD management, and posture to reduce fall risk and minimize pain report Supine to sit Stand by assist Sit to stand contatct guard assist with FWW Stand to sit stand by assist with FWW Bed to chair stand by assist with FWW Gait: Facilitate safe and correct performance of level surface ambulation covering a distance of 150 feet with reciprocal heel-toe step through gait pattern with no report of increased pain. Standby assist provided with minimal verbal cueing for limb movement sequence, pain management, weight distribution, and posture to minimize pain reported and reduce fall risk. Stairs: Not needed at this time as patient has a ramp to enter and a stair lift to the bedroom of the house Balance: Static Sitting: Normal Dynamic Sitting: Normal Static Standing: Fair Dynamic Standing: Fair Special Tests: Mobility Limitations Standardized [facility] AM-PAC 6 clicks Basic Mobility Inpatient Short Form: Raw Score: 23 CMS Score: 11% deficit Informed Consent/Education: Patient instructed in purpose of PT consult. Packet containing VJ exercise protocol has been given to patient. Education and training on initial set of exercises that can be done at home have been completed with patient. Trained patient with correct performance of exercises below to maximize motor control, joint flexibility, soft tissue extensibility of the R hip musculature to facilitate return to independent functional mobility performance. Access Code: [email or web address] URL: [email or web address] Date: 08/15/2025 Prepared by: Molly Eli Exercises - Gluteal Sets - 1 x daily - 7 x weekly - 1 sets - 10 reps - 5 hold - Supine Heel Slide - 1 x daily - 7 x weekly - 1 sets - 10 reps - 5 hold - Supine Ankle Pumps - 1 x daily - 7 x weekly - 1 sets - 10 reps - 5 hold - Seated March - 1 x daily - 7 x weekly - 1 sets - 10 reps - 5 hold - Seated Long Arc Quad - 1 x daily - 7 x weekly - 1 sets - 10 reps - 5 hold Assessment: Patient requires use of a front wheeled walker for all mobility ADL performance to maximize independence and reduce fall risk. Patient presents with clinical signs and symptoms consistent with current/admitting diagnoses that have resulted to mobility limitations, gait instability, generalized weakness, and impairment of motor control as demonstrated by the following impairment level findings: 1. Decreased strength to right hip major muscle groups 2. Impaired standing balance Impairments are contributing to the following functional limitations: 1. Inability to safely ambulate without assistive device 2. Increase completion time for mobility ADL performance 3. Increased fall risk Patient is assessed as a 46446 moderate complexity based on the following: History: 80-year-old female with impairment level findings, functional limitations, and past medical history as indicated above Examination: Demonstrable impairment in strength, balance, and mobility level with underlying impairments and functional limitations as documented above Presentation: Evolving Decision Makin moderate complexity Goals: N/A. PT evaluation and 1-2 treatment sessions only for functional mobility training using recommended AD and for HEP instruction. Plan of Care/Treatment Plan: N/A. PT evaluation and 1-2 treatment session only for functional mobility training using recommended AD and for HEP instruction. DISCHARGE RECOMMENDATIONS: Home when medically cleared by orthopedic surgeon. Recommend outpatient PT services in order to optimize functional mobility outcomes and facilitate return to independent community ambulation without an assistive device. TREATMENT CODE/TIME: 33469 x 20 minutes for 1 unit, 22226 x 17 minutes for 1 unit (11:06?11:43). Thank you for the opportunity to participate in the care of this patient. Molly Eli PT, DPT, CLT [facility] [place], [place]
== END 2025-08-15 12:15 | disposition home or self-care (01) ==
LOC: SUR 05:49 → DSU 06:01 → SUR 06:04
PROVIDERS: PCP Physician Assistant; Visit Provider Student in an Organized Health Care Education/Training Program
PROC: (CPT 27130; principal; 2025-08-15 07:30)
DX: M16.11 Unilateral primary osteoarthritis, right hip (principal); I12.9 Hypertensive chronic kidney disease with stage 1 through stage 4 chronic kidney disease, or unspecified chronic kidney disease; E11.69 Type 2 diabetes mellitus with other specified complication; N18.9 Chronic kidney disease, unspecified
CPT/HCPCS: 20985; 27130; 97162; 97530; 73501; C1776; J0166; J0690; J1100; J1885; J2003; J2371; J2401; J2405; J2704; J2795; J3010; J3475

== ENCOUNTER 2025-08-28 11:29 | Outpatient (CLI) | payer MEDICARE, SELFPAY ==
--- NOTE | 2025-08-28 11:15 | DI.RAD_ITS ---
Exam(s) XR HIP RT COMPLETE AP PELVIS EXAM: XR HIP RT COMPLETE AP PELVIS CLINICAL HISTORY: 1ST POST OP S/P R VJ. TECHNIQUE: 2D digital imaging was performed. Two images were obtained. The pelvis and lateral hip views were obtained. COMPARISON: CR XR HIP RT COMPLETE AP PELVIS from 02/08/2025 CR XR PELVIS AP from 03/16/2025 XA XR HIP RT IN OR from 08/15/2025 FINDINGS: BONES: There are stable post operative changes of a right total hip arthroplasty present. No fracture or dislocation. Limited views of the left total hip arthroplasty are unremarkable. JOINTS: The orthopedic hardware is in good position. No evidence of hardware loosening. SOFT TISSUE: Atherosclerotic calcification is present. IMPRESSION: Stable right total hip arthroplasty. DATA REPOSITORY: RADIATION DOSE DELIVERED:
== END 2025-08-28 11:30 | disposition home or self-care (01) ==
LOC: DIORS 11:30
PROVIDERS: PCP Physician Assistant; Referring Provider Physician Assistant; Visit Provider Physician Assistant
DX: Z47.1 Aftercare following joint replacement surgery (principal); Z96.641 Presence of right artificial hip joint
CPT/HCPCS: 99024; 73502

== ENCOUNTER 2025-08-29 14:43 | Outpatient (REF) | payer MEDICARE, SELFPAY ==
[2025-08-29 20:29] LABS: Microalb ug/mg Crea 7.7 ug/mg Cr
== END 2025-08-29 14:44 | disposition home or self-care (01) ==
LOC: NCHCN 14:43
PROVIDERS: PCP Physician Assistant; Visit Provider Physician Assistant
DX: I10 Essential (primary) hypertension (principal)
CPT/HCPCS: 82043; 82570

== ENCOUNTER → 2025-09-28 13:42 | Outpatient (BNVA) | payer MEDICARE, SELFPAY | PROVIDERS: PCP Physician Assistant; Referring Provider Physician Assistant; Visit Provider Physician Assistant | DX: Z47.1 Aftercare following joint replacement surgery (principal); Z96.641 Presence of right artificial hip joint | CPT/HCPCS: 99024 ==